=== PATIENT | male | born 1960 | race Caucasian/White ===

== ENCOUNTER 2016-10-09 21:11 | Emergency (ER) | payer SELFPAY ==
[2016-10-09 21:19] VITALS: RESP 16; TEMP 97.8
--- NOTE | 2016-10-09 21:58 | C.PDOC ---
History Of Present Illness 56 year old male BIBA for public intoxication. Patient is verbally abusive and threatening to murder and kill the staff. No physical complaints verbalized at this time. Time Seen by Provider: 10/09/16 21:51 Chief Complaint (Nursing): Substance Abuse History Per: Patient History/Exam Limitations: no limitations Onset/Duration Of Symptoms: Hrs Current Symptoms Are (Timing): Still Present Suicide/Self Injury Attempted (Context): None Modifying Factor(s): Alcohol Associated Symptoms: Anger. denies: Depression, Suicidal Thoughts, Suicidal Plan Involuntary Hold By: None Recent travel outside of the [place]: No Past Medical History Reviewed: Historical Data, Nursing Documentation, Vital Signs Vital Signs: Last Vital Signs Temp 97.8 F 10/09/16 21:15 Pulse 86 10/09/16 21:15 Resp 16 10/09/16 21:15 BP 148/98 H 10/09/16 21:15 Pulse Ox 98 10/09/16 23:26 - Medical History PMH: No Chronic Diseases Surgical History: No Surg Hx Family History: States: Unknown Family Hx - Social History Hx Alcohol Use: Yes Hx Substance Use: No - Immunization History Hx Tetanus Toxoid Vaccination: No Hx Influenza Vaccination: No Hx Pneumococcal Vaccination: No Review Of Systems Constitutional: Negative for: Fever, Chills Gastrointestinal: Negative for: Nausea, Vomiting, Diarrhea Physical Exam - Physical Exam Appears: Non-toxic, No Acute Distress, Other (ETOH on breath) Skin: Normal Color, Warm, Dry Head: Atraumatic, Normacephalic Oral Mucosa: Moist Chest: Symmetrical, No Tenderness Cardiovascular: Rhythm Regular, No Murmur Respiratory: Normal Breath Sounds, No Rales, No Rhonchi, No Wheezing Gastrointestinal/Abdominal: Soft, No Tenderness Neurological/Psych: Oriented x3, Normal Speech, Normal Cognition ED Course And Treatment O2 Sat by Pulse Oximetry: 98 (Room air) Pulse Ox Interpretation: Normal Progress Note: Patient placed on 4 point restaints. Ativan and geodon administered. Reevaluation Time: 01:00 Reassessment Condition: Improved (sleeping comfortably, on monitor, no distress , no restraints) Disposition - Disposition Disposition Time: 01:00 Condition: GOOD Forms: [facility] ([place]ish) - Clinical Impression Clinical Impression: Alcohol intoxication - Scribe Statement The provider has reviewed the documentation as recorded by the Scribe Leodan Regan All medical record entries made by the Scribe were at my direction and personally dictated by me. I have reviewed the chart and agree that the record accurately reflects my personal performance of the history, physical exam, medical decision making, and the department course for this patient. I have also personally directed, reviewed, and agree with the discharge instructions and disposition. Physician Patient Turnover Patient Signed Over To: Tiago Fuller Handoff Comments: dispo in AM when sober
[2016-10-10 05:46] VITALS: BP 140/84; PULSE 68; O2SAT 99
== END 2016-10-10 06:10 | disposition home or self-care (01) ==
LOC: C.ER 21:11
DX: F10.129 Alcohol abuse with intoxication, unspecified (principal)
CPT/HCPCS: 96372; 99284; J2060; J3486